=== PATIENT | female | born 1995 | race Caucasian/White ===

== ENCOUNTER 2018-02-21 10:17 | Inpatient (IN) | payer OTHER ==
[2018-02-21] MEDS: DEXTROSE 5%-LR 1,000 ML IV ×3 (11:21→15:00)
[2018-02-21 11:38] LABS: ADD MAN DIFF? NO
[2018-02-21 11:47] LABS: BASOPHIL # 0.1 10^3/ul (0.0-0.1); BASOPHILS % 0.5 % (0.0-2.0); EOSINOPHILS # 0.1 10^3/ul (0.0-0.5); HEMATOCRIT 34.4 % (37.0-47.0); HEMOGLOBIN 10.8 g/dl (12.0-16.0); LYMPHOCYTES # 1.6 10^3/ul (0.8-2.9); LYMPHOCYTES % 12.2 % (15.0-51.0); MEAN CORPUSCULAR HEMOGLOBIN 27.7 pg (29.0-33.0); MEAN CORPUSCULAR HGB CONC 31.4 g/dl (32.0-37.0); MEAN CORPUSCULAR VOLUME 88.2 fl (82.0-101.0); MEAN PLATELET VOLUME 9.8 fl (7.4-10.4); MONOCYTE # 0.8 10^3/ul (0.3-0.9); MONOCYTES % 6.3 % (0.0-11.0); NEUTROPHIL # 10.3 10^3/ul (1.6-7.5); NEUTROPHILS % 76.6 % (39.0-77.0); PLATELET COUNT 278 10^3/UL (140-415); RED CELL DISTRIBUTION WIDTH 16.6 % (11.5-14.5)
[2018-02-21 11:47] LABS: WHITE BLOOD COUNT 13.4 10^3/ul (4.8-10.8)
[2018-02-21 12:59] LABS: ADD UMIC NO; UR ASCORBIC ACID NEGATIVE (NEGATIVE); UR BILIRUBIN (Dip) NEGATIVE (NEGATIVE); UR BLOOD (Dip) NEGATIVE (NEGATIVE); UR CLARITY CLEAR (CLEAR); UR COLOR COLORLESS (YELLOW); UR GLUCOSE (Dip) 2+ mg/dL (NEGATIVE); UR KETONES (Dip) NEGATIVE (NEGATIVE); UR LEUKOCYTE ESTERASE (Dip) NEGATIVE Leu/ul (NEGATIVE); UR NITRITE (Dip) NEGATIVE (NEGATIVE); UR SPECIFIC GRAVITY (Dip) 1.002 (1.003-1.030); UR TOTAL PROTEIN (Dip) NEGATIVE (NEGATIVE); UR UROBILINOGEN (Dip) NEGATIVE (NEGATIVE)
[2018-02-21] MEDS: LACTATED RINGER'S 1,000 ML IV ×2 (14:16→17:05)
[2018-02-21] MEDS: BUTORPHANOL 2 MG INJ IV (16:31)
[2018-02-21 17:16] LABS: BARBITURATES Negative (NEGATIVE); BENZODIAZEPINES Negative (NEGATIVE); CANNABINOIDS Negative (NEGATIVE); COCAINE Negative (NEGATIVE); OPIATES Negative (NEGATIVE)
[2018-02-21 17:22] LABS: AMPHETAMINE/METHAMPHETAMINE Positive (NEGATIVE)
[2018-02-21] MEDS: ACETAMINOPHEN 1000MG/100ML IV 100 ML IVPB (19:08)
[2018-02-21] MEDS: LACTATED RINGER'S 1,000 ML IV* ×2 (20:24→20:35)
[2018-02-21] MEDS ORDERED: OXYTOCIN 30 UNITS/LR 500 ML IV (20:30)
[2018-02-21] MEDS ORDERED: IBUPROFEN 600 MG TAB PO (20:30)
[2018-02-21] MEDS ORDERED: LIDOCAINE 1% (MPF) 30 ML INJ INJ (20:30)
[2018-02-21] MEDS ORDERED: FENTAnyl 2MCG/ML-ROPIV 0.2% 100 ML (20:50)
[2018-02-21 21:00] LABS: INR 1.08; PARTIAL THROMBOPLASTIN TIME 29.1 Sec (25.0-35.0); PROTIME 14.1 Sec (11.9-14.9); PT RATIO 1.1
[2018-02-21] MEDS ORDERED: NALOXONE (0.4 MG/ML) INJ IV (21:30)
[2018-02-21] MEDS ORDERED: KETOROLAC 30 MG INJ IV (21:30)
[2018-02-21] MEDS ORDERED: DIPHENHYDRAMINE 50 MG INJ IV (21:30)
[2018-02-21] MEDS ORDERED: ONDANSETRON 4 MG INJ IV (21:30)
[2018-02-21] MEDS ORDERED: FENTAnyl 2MCG/ML-ROPIV 0.2% 100 ML BAG EPI (21:30)
[2018-02-21] MEDS ORDERED: ZOLPIDEM 5 MG TAB PO (21:30)
[2018-02-21] MEDS ORDERED: HYDROmorphONE 0.5 MG/0.5 ML SYG IV ×2 (21:30)
[2018-02-21 21:35] LABS: HEPATITIS B SURFACE ANTIGEN NEGATIVE (NEGATIVE)
[2018-02-21] MEDS: MINERAL OIL LIGHT 10 ML VIAL TOP (23:30)
[2018-02-22] MEDS: OXYTOCIN 30 UNITS/LR 500 ML IV ×2 (01:20→02:31)
[2018-02-22] MEDS: METHYLERGONOVINE 0.2 MG INJ IM (01:25)
[2018-02-22] MEDS: CARBOPROST 250 MCG INJ IM (02:05)
[2018-02-22] MEDS: MISOPROSTOL 200 MCG TAB PR (03:06)
[2018-02-22] MEDS ORDERED: CARBOPROST 250 MCG INJ IM (05:00)
[2018-02-22] MEDS ORDERED: MISOPROSTOL 200 MCG TAB PR (05:00)
[2018-02-22] MEDS ORDERED: WITCH HAZEL/GLYCERIN PAD PR (05:00)
[2018-02-22] MEDS ORDERED: ZOLPIDEM 5 MG TAB PO (05:00)
[2018-02-22] MEDS ORDERED: METHYLERGONOVINE 0.2 MG INJ IM (05:00)
[2018-02-22] MEDS ORDERED: LANOLIN 7 GM TUBE TOP (05:00)
[2018-02-22] MEDS ORDERED: OXYTOCIN 30 UNITS/LR 500 ML IV (05:00)
[2018-02-22] MEDS ORDERED: OXYCODONE/ASPIRIN (4.88/325) TAB PO (05:00)
[2018-02-22] MEDS ORDERED: BENZOCAINE 20% 56 ML SPRAY TOP (05:00)
[2018-02-22] MEDS: IBUPROFEN 600 MG TAB PO ×3 (06:00→17:35)
[2018-02-22] MEDS: LACTATED RINGER'S 1,000 ML IV ×3 (06:02→21:30)
[2018-02-22] MEDS: SENNA/DOCUSATE NA (8.6MG/50MG) TAB PO ×2 (09:00→21:00)
[2018-02-22] MEDS: OXYCODONE/ASPIRIN (4.88/325) TAB PO ×3 (09:26→19:44)
[2018-02-22 15:10] LABS: RAPID PLASMA REAGIN NONREACTIVE (NR)
[2018-02-23] MEDS: IBUPROFEN 600 MG TAB PO ×6 (00:16→23:36)
[2018-02-23] MEDS: LACTATED RINGER'S 1,000 ML IV ×3 (05:30→21:30)
[2018-02-23] MEDS: OXYCODONE/ASPIRIN (4.88/325) TAB PO (05:33)
[2018-02-23 08:09] LABS: ADD MAN DIFF? NO
[2018-02-23 08:14] LABS: WHITE BLOOD COUNT 11.1 10^3/ul (4.8-10.8)
[2018-02-23 08:14] LABS: BASOPHIL # 0.1 10^3/ul (0.0-0.1); BASOPHILS % 0.5 % (0.0-2.0); EOSINOPHILS # 0.4 10^3/ul (0.0-0.5); EOSINOPHILS % 3.4 % (0.0-7.0); HEMATOCRIT 31.2 % (37.0-47.0); HEMOGLOBIN 9.4 g/dl (12.0-16.0); LYMPHOCYTES # 3.1 10^3/ul (0.8-2.9); LYMPHOCYTES % 27.6 % (15.0-51.0); MEAN CORPUSCULAR HEMOGLOBIN 27.2 pg (29.0-33.0); MEAN CORPUSCULAR HGB CONC 30.1 g/dl (32.0-37.0); MEAN CORPUSCULAR VOLUME 90.4 fl (82.0-101.0); MEAN PLATELET VOLUME 9.8 fl (7.4-10.4); MONOCYTE # 0.8 10^3/ul (0.3-0.9); MONOCYTES % 7.6 % (0.0-11.0); NEUTROPHIL # 6.3 10^3/ul (1.6-7.5); NEUTROPHILS % 57.2 % (39.0-77.0); PLATELET COUNT 228 10^3/UL (140-415); RED BLOOD COUNT 3.45 10^6/ul (4.20-5.40); RED CELL DISTRIBUTION WIDTH 16.9 % (11.5-14.5)
[2018-02-23] MEDS: SENNA/DOCUSATE NA (8.6MG/50MG) TAB PO ×2 (09:00→21:00)
[2018-02-24] MEDS: IBUPROFEN 600 MG TAB PO ×2 (06:00→11:47)
[2018-02-24] MEDS: SENNA/DOCUSATE NA (8.6MG/50MG) TAB PO (09:00)
[2018-02-24] MEDS: DIPHTH/TET/ACEL PERTUSS (ADULT) 0.5 ML VIAL IM* (09:01)
== END 2018-02-24 17:45 | disposition home or self-care (01) | DRG 775 ==
LOC: OBT 10:17 → PP1 02-22 04:05 → L-D 10:17 → OBT 13:55 → L-D 13:55
PROVIDERS: Obstetrics & Gynecology
PROC: 10E0XZZ Delivery of Products of Conception, External Approach (ICD-10-PCS; principal; 2018-02-22)
PROC: 3E033VJ Introduction of Other Hormone into Peripheral Vein, Percutaneous Approach (ICD-10-PCS; 2018-02-22)
DX: O41.03X0 Oligohydramnios, third trimester, not applicable or unspecified (principal); O99.324 Drug use complicating childbirth; F15.90 Other stimulant use, unspecified, uncomplicated; Z3A.37 37 weeks gestation of pregnancy; Z37.0 Single live birth
CPT/HCPCS: 36415; 62319; 76815; 76818; 80307; 81003; 85025; 85610; 85730; 86592; 86850; 86900; 86901; 87340; 96360; 99464

== ENCOUNTER 2019-02-23 11:39 | Inpatient (IN) | payer OTHER ==
[2019-02-23] MEDS ORDERED: AMPICILLIN 2 GM/NS (PMX) 100 ML (11:44)
[2019-02-23] MEDS ORDERED: BUTORPHANOL 2 MG INJ IV ×2 (12:00)
[2019-02-23] MEDS ORDERED: OXYCODONE/ASPIRIN (4.88/325) TAB PO (12:00)
[2019-02-23] MEDS ORDERED: OXYTOCIN 30 UNITS/LR 500 ML IV ×2 (12:00→13:30)
[2019-02-23] MEDS ORDERED: MISOPROSTOL 200 MCG TAB PR ×2 (12:00→13:30)
[2019-02-23] MEDS: AMPICILLIN 2 GM/NS (PMX) 100 ML IV (12:06)
[2019-02-23] MEDS: LACTATED RINGER'S 1,000 ML IV (12:06)
[2019-02-23 12:19] LABS: ABNORMAL IP MESSAGE 1; HEMATOCRIT 33.2 % (37.0-47.0); HEMOGLOBIN 10.5 g/dl (12.0-16.0); MEAN CORPUSCULAR HEMOGLOBIN 28.5 pg (29.0-33.0); MEAN CORPUSCULAR HGB CONC 31.6 g/dl (32.0-37.0); MEAN PLATELET VOLUME 9.5 fl (7.4-10.4); PLATELET COUNT 208 10^3/UL (140-415); RED BLOOD COUNT 3.69 10^6/ul (4.20-5.40); RED CELL DISTRIBUTION WIDTH 16.4 % (11.5-14.5)
[2019-02-23 12:19] LABS: WHITE BLOOD COUNT 11.1 10^3/ul (4.8-10.8)
[2019-02-23 12:23] LABS: ADD MAN DIFF? YES; POSITIVE DIFF @See below
[2019-02-23] MEDS: CARBOPROST 250 MCG INJ IM (12:27)
[2019-02-23] MEDS: METHYLERGONOVINE 0.2 MG INJ IM (12:27)
[2019-02-23] MEDS: LIDOCAINE 1% (MPF) 30 ML INJ INJ (12:28)
[2019-02-23 12:40] LABS: INR 1.05; PARTIAL THROMBOPLASTIN TIME 29.1 Sec (23.0-35.0); PROTIME 13.8 Sec (11.9-14.9); PT RATIO 1.1
[2019-02-23] MEDS: OXYTOCIN 30 UNITS/LR 500 ML IV ×3 (12:40→17:18)
[2019-02-23] MEDS: IBUPROFEN 600 MG TAB PO (12:55)
[2019-02-23 12:58] LABS: BAND NEUTROPHILS #M 0.3 10^3/ul (0.0-0.6); BAND NEUTROPHILS % (M) 3 % (0-4); BASOPHIL #M 0.1 10^3/ul (0.0-0.0); BASOPHILS % (M) 1 % (0-2); EOSINOPHILS % (M) 3 % (0-7); GIANT THROMBO% (M) 1 % (0-0); LYMPHOCYTES #M 2.4 10^3/ul (0.8-2.9); LYMPHOCYTES % (M) 22 % (15-51); METAMYELOCYTES #M 0.2 10^3/ul (0.0-0.0); METAMYELOCYTES %M 2 % (0-0); MONOCYTE #M 0.2 10^3/ul (0.3-0.9); MONOCYTES % (M) 2 % (0-11); MYELOCYTES #M 0.2 10^3/ul (0.0-0.0); MYELOCYTES % (M) 2 % (0-0); OVALOCYTES 1+ (0-0); PLATELET ESTIMATE NORMAL; POIKILOCYTOSIS 1+ (0-0); POLYCHROMASIA 1+ (0-0); SEG NEUT #M 7.2 10^3/ul (1.6-7.5); SEGMENTED NEUTROPHILS (M) % 65 % (39-77); SMUDGE%M 4 % (0-0)
[2019-02-23 13:04] LABS: HEPATITIS B SURFACE ANTIGEN NEGATIVE (NEGATIVE)
[2019-02-23] MEDS: LACTATED RINGER'S 1,000 ML IV* ×2 (13:22→21:22)
[2019-02-23] MEDS ORDERED: LANOLIN HPA 1 PKT TOP (13:30)
[2019-02-23] MEDS ORDERED: NA PHOSPHATE/BIPHOS 133 ML ENEMA PR (13:30)
[2019-02-23] MEDS ORDERED: ONDANSETRON 4 MG INJ IV (13:30)
[2019-02-23] MEDS ORDERED: METHYLERGONOVINE 0.2 MG INJ IM (13:30)
[2019-02-23] MEDS ORDERED: MAGNESIUM HYDROXIDE 30ML CUP PO (13:30)
[2019-02-23] MEDS ORDERED: HYDROCODONE/APAP (5/325) TAB PO ×2 (13:30)
[2019-02-23] MEDS ORDERED: ZOLPIDEM 5 MG TAB PO (13:30)
[2019-02-23] MEDS ORDERED: CARBOPROST 250 MCG INJ IM (13:30)
[2019-02-23] MEDS ORDERED: DIPHENHYDRAMINE 25 MG CAP PO (13:30)
[2019-02-23] MEDS ORDERED: METHYLERGONOVINE 0.2 MG TAB PO (13:30)
[2019-02-23 13:31] LABS: BARBITURATES Negative (NEGATIVE); BENZODIAZEPINES Negative (NEGATIVE); CANNABINOIDS Negative (NEGATIVE); COCAINE Negative (NEGATIVE); OPIATES Negative (NEGATIVE)
[2019-02-23 13:32] LABS: AMPHETAMINE/METHAMPHETAMINE POSITIVE (NEGATIVE)
[2019-02-23] MEDS ORDERED: AMPICILLIN 1 GM/NS (PMX) 50 ML IV (16:00)
[2019-02-23] MEDS: WITCH HAZEL/GLYCERIN PAD PR (17:16)
[2019-02-23] MEDS: BENZOCAINE 20% 56 ML SPRAY TOP (17:17)
[2019-02-23] MEDS: IBUPROFEN 800 MG TAB PO (19:39)
[2019-02-23] MEDS: SENNA/DOCUSATE NA (8.6MG/50MG) TAB PO (21:02)
[2019-02-23 21:32] LABS: RAPID PLASMA REAGIN NONREACTIVE (NR)
[2019-02-24] MEDS: IBUPROFEN 800 MG TAB PO ×2 (01:34→14:20)
[2019-02-24] MEDS: LACTATED RINGER'S 1,000 ML IV* (05:22)
[2019-02-24 07:28] LABS: ADD MAN DIFF? NO
[2019-02-24 07:32] LABS: BASOPHIL # 0.1 10^3/ul (0.0-0.1); BASOPHILS % 0.3 % (0.0-2.0); EOSINOPHILS # 0.2 10^3/ul (0.0-0.5); EOSINOPHILS % 1.5 % (0.0-7.0); HEMATOCRIT 31.7 % (37.0-47.0); LYMPHOCYTES # 2.2 10^3/ul (0.8-2.9); LYMPHOCYTES % 15.1 % (15.0-51.0); MEAN CORPUSCULAR HEMOGLOBIN 28.6 pg (29.0-33.0); MEAN CORPUSCULAR HGB CONC 31.5 g/dl (32.0-37.0); MEAN CORPUSCULAR VOLUME 90.6 fl (82.0-101.0); MEAN PLATELET VOLUME 9.6 fl (7.4-10.4); MONOCYTE # 1.1 10^3/ul (0.3-0.9); MONOCYTES % 7.5 % (0.0-11.0); NEUTROPHIL # 10.5 10^3/ul (1.6-7.5); NEUTROPHILS % 71.1 % (39.0-77.0); PLATELET COUNT 213 10^3/UL (140-415); RED CELL DISTRIBUTION WIDTH 16.5 % (11.5-14.5)
[2019-02-24 07:32] LABS: WHITE BLOOD COUNT 14.8 10^3/ul (4.8-10.8)
[2019-02-24] MEDS: SENNA/DOCUSATE NA (8.6MG/50MG) TAB PO ×2 (14:20→21:11)
[2019-02-25] MEDS: DIPHTH/TET/ACEL PERTUSS (ADULT) 0.5 ML VIAL IM* (09:00)
[2019-02-25] MEDS: MEASLES,MUMPS,RUBELLA VACCINE INJ SC* (09:00)
[2019-02-25] MEDS: VARICELLA VACCINE LIVE/PF 1,350 UNIT/0.5 ML ML SC* (09:00)
[2019-02-25] MEDS: SENNA/DOCUSATE NA (8.6MG/50MG) TAB PO (09:10)
== END 2019-02-25 19:05 | disposition home or self-care (01) | DRG 807 ==
LOC: L-D 11:39 → PP1 02-24 12:30
PROVIDERS: Obstetrics & Gynecology
PROC: 10E0XZZ Delivery of Products of Conception, External Approach (ICD-10-PCS; principal; 2019-02-23)
PROC: 10907ZC Drainage of Amniotic Fluid, Therapeutic from Products of Conception, Via Natural or Artificial Opening (ICD-10-PCS; 2019-02-23)
DX: O77.0 Labor and delivery complicated by meconium in amniotic fluid (principal); Z37.0 Single live birth; Z3A.00 Weeks of gestation of pregnancy not specified
CPT/HCPCS: 76815; 80307; 85025; 85610; 85730; 86592; 86850; 86900; 86901; 87340; 88307; 90716; 99464